=== PATIENT | female | born 1985 | race Caucasian/White ===

== ENCOUNTER 2017-10-24 06:47 | Day surgery (SDC) | payer OTHER ==
[~2017-10-24 06:47] MED LIST: Lidocaine 1%/Sod Bicarbonate in NS 8.4% 1 ML Syringe IDERM PRN; Sodium Chloride 0.9% 10 ML Syringe FLUSH PRN
[2017-10-24] MEDS ORDERED: Ketamine 500 mg/10 ML MDV ONE (07:02)
[2017-10-24] MEDS ORDERED: Lidocaine 1% 4 ML ONE (07:02)
[2017-10-24] MEDS ORDERED: Ondansetron 4 MG/2 ML SDV ONE (07:02)
[2017-10-24] MEDS ORDERED: Propofol 200 MG/20 ML SDV ONE ×6 (07:02→08:55)
[2017-10-24] MEDS ORDERED: Midazolam 1 MG/ML 2 ML SDV ONE (07:02)
[2017-10-24] MEDS ORDERED: Rocuronium 50 MG/5 ML Vial ONE (07:02)
[2017-10-24] MEDS ORDERED: Dexamethasone 4 MG/ML 5 ML MDV ONE (07:02)
[2017-10-24] MEDS ORDERED: fentaNYL 250 MCG/5 ML SDV ONE (07:02)
[2017-10-24] MEDS ORDERED: Bupivacaine 0.5% 30 ML SDV ONE (07:10)
[2017-10-24] MEDS ORDERED: Sodium Chloride 0.9% 50 ML SDV ONE (07:10)
[2017-10-24] MEDS ORDERED: Lidocaine 1% with EPINEPHrine 1:100,000 20 ML MDV ONE (07:10)
[2017-10-24] MEDS: Lactated Ringers 1,000 ML IV SCH ×2 (07:25→12:22)
--- NOTE | 2017-10-24 07:37 | PCM.PREANE ---
Preanesthetic Assessment - Procedure Proposed Procedure: LAVH with BS - Anesthesia/Transfusion/Family Hx Anesthesia History: Prior Anesthesia Reaction Type of Anesthesia Reaction: Excessive Nausea/Vomiting Family History of Anesthesia Reaction: No Transfusion History: No Prior Transfusion(s) Intubation History: Unknown - Review of Systems General: No Symptoms Pulmonary: No Symptoms Cardiovascular: No Symptoms Gastrointestinal: No Symptoms Neurological: No Symptoms Other: Reports: None - Physical Assessment NPO Status Date: 10/23/17 NPO Status Time: 23:30 Pulse: 89 O2 Sat by Pulse Oximetry: 100 Respiratory Rate: 16 Blood Pressure: 116/77 Temperature: 37.0 C Height: 1.57 m Weight: 61 kg ASA Class: 2 Mental Status: Alert & Oriented x3 Airway Class: Mallampati = 1 Dentition: Reports: Broken Tooth/Teeth (chipped left top 2nd tooth) Thyro-Mental Finger Breadths: 3 Mouth Opening Finger Breadths: 3 ROM/Head Extension: Full Lungs: Clear to Auscultation, Normal Respiratory Effort Cardiovascular: Regular Rate, Regular Rhythm - Lab Values: Laboratory Last Values WBC 6.48 K/mm3 (3.98-10.04) 10/22/17 12:27 RBC 4.70 M/mm3 (3.98-5.22) 10/22/17 12:27 Hgb 11.6 gm/L (11.2-15.7) 10/22/17 12:27 Hct 36.9 % (34.1-44.9) 10/22/17 12:27 MCV 78.5 fl (79.4-94.8) L 10/22/17 12:27 MCH 24.7 pg (25.6-32.2) L 10/22/17 12:27 MCHC 31.4 g/dl (32.2-35.5) L 10/22/17 12:27 RDW Std Deviation 53.0 fL (36.4-46.3) H 10/22/17 12:27 Plt Count 327 K/mm3 (182-369) 10/22/17 12:27 MPV 10.5 fl (9.4-12.3) 10/22/17 12:27 Neut % (Auto) 61.5 % (34.0-71.1) 10/22/17 12:27 Lymph % (Auto) 28.2 % (19.3-51.7) 10/22/17 12:27 [place] % (Auto) 7.6 % (4.7-12.5) 10/22/17 12:27 Eos % (Auto) 1.7 (0.7-5.8) 10/22/17 12: Baso % (Auto) 0.8 % (0.1-1.2) 10/22/17 12:27 Neut # (Auto) 3.99 K/mm3 (1.56-6.13) 10/22/17 12: Lymph # (Auto) 1.83 K/mm3 (1.18-3.74) 10/22/17 12:27 [place] # (Auto) 0.49 K/mm3 (0.24-0.36) H 10/22/17 12: Eos # (Auto) 0.11 K/mm3 (0.04-0.36) 10/22/17 12: Baso # (Auto) 0.05 K/mm3 (0.01-0.08) 10/22/17 12:27 Urine Color Yellow (Yellow) 10/22/17 12:27 Urine Appearance Clear (Clear) 10/22/17 12:27 Urine pH 7.0 (5.0-8.0) 10/22/17 12:27 Ur Specific [place] 1.015 (1.005-1.030) 10/22/17 12:27 Urine Protein Negative (Negative) 10/22/17 12:27 Urine Glucose (UA) Negative (Negative) 10/22/17 12:27 Urine Ketones Negative (Negative) 10/22/17 12:27 Urine Occult Blood Negative (Negative) 10/22/17 12:27 Urine Nitrite Negative (Negative) 10/22/17 12:27 Urine Bilirubin Negative (Negative) 10/22/17 12:27 Urine Urobilinogen 0.2 (0.2-1.0) 10/22/17 12:27 Ur Leukocyte Esterase Negative (Negative) 10/22/17 12:27 Urine HCG, Qual Negative (NEGATIVE) 10/22/17 12:27 Blood Type A POSITIVE 10/22/17 12:27 Gel Antibody Screen Negative 10/22/17 12:27 - Allergies Allergies/Adverse Reactions: Allergies Allergy/AdvReac Type Severity Reaction Status Date / Time morphine Allergy Itching Verified 10/23/17 11:50 - Blood Blood Available: No Product(s) Available: None - Anesthesia Plan Pre-Op Medication Ordered: None - Acknowledgements Anesthesia Type Planned: General Anesthesia (scopolamine patch, TIVA) Pt an Appropriate Candidate for the Planned Anesthesia: Yes Alternatives and Risks of Anesthesia Discussed w Pt/Guardian: Yes Pt/Guardian Understands and Agrees with Anesthesia Plan: Yes PreAnesthesia Questionnaire - Past Health History Medical/Surgical History: Denies Medical/Surgical History Cardiovascular History: Reports: None Respiratory History: Reports: None Gastrointestinal History: Reports: None PRINCIPAL DATA ARCHITECT History: Reports: , Other (See Below) Other OB/BYN History: menorrhagia, dysmenorrhea, bacterial vaginitis, discharge and odor, HPV Musculoskeletal History: Reports: None Neurological History: Reports: None Psychiatric History: Reports: None Endocrine/Metabolic History: Reports: None Hematologic History: Reports: None Immunologic History: Reports: None Oncologic (Cancer) History: Reports: None Dermatologic History: Reports: Other (See Below) Other Dermatologic History: right foot plant wart removal, left wrist cyst removal - Past Surgical History Head Surgeries/Procedures: Reports: None HEENT Surgical History: Reports: Oral Surgery Cardiovascular Surgical History: Reports: None Respiratory Surgical History: Reports: None GI Surgical History: Reports: None Female Surgical History: Reports: Section Endocrine Surgical History: Reports: None Neurological Surgical History: Reports: None Musculoskeletal Surgical History: Reports: None Oncologic Surgical History: Reports: None - SUBSTANCE USE Smoking Status *Q: Current Every Day Smoker Recreational Drug Use History: No - HOME MEDS Home Medications: Home Meds Ibuprofen 600 mg PO Q6HR PRN #60 tablet 12/09/13 [Rx] Ferrous Sulfate [Iron] 325 mg PO DAILY 10/23/17 [History] MV-Min/Vit C/Glut/Sarah Ac/HC124 [Airborne Tablet Chewable] 1 tab PO DAILY [History] Multivitamin [Daily Multiple Vitamin] 1 tab PO DAILY 10/23/17 [History] - CURRENT (IN HOUSE) MEDS Current Meds: Current Medications Lactated Ringer's (Ringers, Lactated) 1,000 mls @ 125 mls/hr IV ASDIRECTED GIGI Stop: 10/24/17 23:00 Lidocaine/Sodium Bicarbonate (Buffered Lidocaine 1% In Ns 8.4%) 0.25 ml IDERM ONETIME PRN PRN Reason: Prior to IV Start Stop: 10/24/17 18:00 Sodium Chloride (Saline Flush) 10 ml FLUSH ASDIRECTED PRN PRN Reason: Keep Vein Open Stop: 10/24/17 18:00 Discontinued Medications Bupivacaine HCl (Marcaine 0.5%) Confirm Administered Dose 30 ml .ROUTE .STK-MED ONE Stop: 10/24/17 07:11 Dexamethasone (Dexamethasone) Confirm Administered Dose 20 mg .ROUTE .STK-MED ONE Stop: 10/24/17 07:03 Fentanyl (Sublimaze) Confirm Administered Dose 250 mcg .ROUTE .STK-MED ONE Stop: 10/24/17 07:03 Lidocaine HCl (Xylocaine-Mpf 1%) Confirm Administered Dose 4 mls @ as directed .ROUTE .STK-MED ONE Stop: 10/24/17 07:03 Ketamine HCl (Ketalar) Confirm Administered Dose 500 mg .ROUTE .STK-MED ONE Stop: 10/24/17 07:03 Lidocaine/Epinephrine (Xylocaine 1% With Epinephrine 1:100,000) Confirm Administered Dose 20 ml .ROUTE .STK-MED ONE Stop: 10/24/17 07:11 Midazolam HCl (Versed 1 Mg/Ml) Confirm Administered Dose 2 mg .ROUTE .STK-MED ONE Stop: 10/24/17 07:03 Ondansetron HCl (Zofran) Confirm Administered Dose 4 mg .ROUTE .STK-MED ONE Stop: 10/24/17 07:03 Propofol (Diprivan 20 Ml) Confirm Administered Dose 200 mg .ROUTE .STK-MED ONE Stop: 10/24/17 07:03 Rocuronium [place] (Zemuron) Confirm Administered Dose 50 mg .ROUTE .STK-MED ONE Stop: 10/24/17 07:03 Sodium Chloride (Normal Saline) Confirm Administered Dose 50 ml .ROUTE .STK-MED ONE Stop: 10/24/17 07:11
[2017-10-24] MEDS ORDERED: Scopolamine 1.5 MG Transdermal Patch TRDERM ONE (07:40)
[2017-10-24] MEDS ORDERED: ceFAZolin 1 GM Vial ONE (07:46)
[2017-10-24] MEDS ORDERED: HYDROmorphone 0.5 MG/0.5 ML Syringe ONE ×2 (08:23)
[2017-10-24] MEDS ORDERED: Lactated Ringers 1,000 ML ONE (08:47)
[2017-10-24] MEDS ORDERED: Ketorolac 30 MG/ML SDV ONE (09:24)
[2017-10-24] MEDS ORDERED: diphenhydrAMINE 50 MG/ML SDV IVPUSH PRN (09:42)
[2017-10-24] MEDS ORDERED: HYDROmorphone 0.5 MG/0.5 ML Syringe IVPUSH ONE (09:42)
[2017-10-24] MEDS ORDERED: Meperidine PF 50 MG/ML Syringe IVPUSH PRN (09:42)
[2017-10-24] MEDS ORDERED: fentaNYL 100 MCG/2 ML SDV IVPUSH PRN (09:42)
[2017-10-24] MEDS ORDERED: Ondansetron 4 MG/2 ML SDV IVPUSH PRN ×2 (09:42→09:44)
--- NOTE | 2017-10-24 09:42 | PCM.POSTAN ---
POST ANESTHESIA ASSESSMENT - MENTAL STATUS Mental Status: Somnolent - VITAL SIGNS Pulse Rate: 61 SaO2: 97 Resp Rate: 8 Blood Pressure: 118/66 Temperature: 36.9 C - RESPIRATORY Respiratory Status: Respiratory Rate WNL, Airway Patent, O2 Saturation Stable, Supplemental Oxygen - CARDIOVASCULAR CV Status: Pulse Rate WNL, Blood Pressure Stable - GASTROINTESTINAL GI Status: No Symptoms - PAIN Pain Score: 0 - POST OP HYDRATION Hydration Status: Adequate & Stable
[2017-10-24] MEDS ORDERED: Acetaminophen/oxyCODONE 325-5 MG Tab PO PRN (09:44)
--- NOTE | 2017-10-24 09:51 | PCM.OPNOTE ---
- General Post-Op/Procedure Note Date of Surgery/Procedure: 10/24/17 Operative Procedure(s): Laparoscopically assisted vaginal hysterectomy with bilateral salpingectomy Findings: Patient numerous vesicles on the posterior aspect of the uterus. Uterus is mildly enlarged. Right and left ovary had functional appearing cyst present. There was scarring in the anterior cul-de-sac secondary to her previous sections. Posterior cul-de-sac was clear. Appendix was flaccid and noninflamed. Gallbladder was distended and was unremarkable. Liver edge was normal. Pre Op Diagnosis: 1. Dysmenorrhea. 2. Menorrhagia Post-Op Diagnosis: Same Anesthesia Technique: General ET Tube Other Anesthesia Type: Marcaine 0.5% local10 mL, lidocaine with epi 1/4 percent local-15 mL Primary Surgeon: Catracho Nina Secondary Surgeon: Stephen Allen Anesthesia Provider: Porter Yanez K 9 Police Officer: Eddie Centeno Reason K 9 Police Officer Was Necessary: Retraction, assistance, patient's safety, quality of Care Role of K 9 Police Officer: Retraction, assistance. Pathology: Uterus with bilateral fallopian tubes as one specimen Fluid Replacement, Intraop: 1,500 Output, Urine Amount: 100 EBL in mLs: 125 Drain/Tube Comments:: Indwelling bladder catheter during surgery only. Removed at the end of the case. Complications: None Condition: Good Free Text/Narrative:: Surgery duration: 63 minutes The patient was taken to the operating room placed in supine position on the operating table. She received 2 g of Ancef preoperatively for infection prophylaxis. She had signed consent previously. After adequate anesthesia patient was placed in a dorsal lithotomy position. It should be noted she had sequential compression stockings in place for DVT prophylaxis. A uterine manipulator was placed as was an latex free indwelling bladder catheter. This was done after adequate prepping and draping. The patient was placed in supine position and four laparoscopic port sites were developed. Marcaine 0.5% approximately 3-5 mL was injected at each site. Varies needle was placed and pneumoperitoneum was achieved with 3 L of CO2. Infraumbilical, suprapubic and 2 lateral port sites were developed. Under laparoscopic guidance the upper portion of the hysterectomy was performed. The right meso salpinx was taken down using the Enseal vessel closure system. This was followed by progression to the ovarian ligament and the round ligament development. The round ligament was taken down to the broad ligament. The broad ligament was taken down to the uterine vasculature which was crossclamped. Bladder flap was then developed using the Enseal vessel closure system. Same procedure was done on the patient' s left side. Ovaries were conserved per patient desire. Vaginal approach was then undertaken. The patient was placed in the dorsal lithotomy position and a weighted speculum was placed in the vagina. The cervix was injected with lidocaine quarter percent with epinephrine 20 mL total. A full circumference incision was made through the epithelium around the cervix. Posterior cul-de-sac was entered without problems. The left uterosacral ligament and then the right uterosacral were taken down using the Enseal vessel closure system. The cardinal ligament and what remained of the uterine vascular vessels and cervical branches of the vessels were managed with the Enseal vessel closure system on each side. Anterior cul-de-sac was then entered and the remaining portion of broad ligament on the right side and a small portion of broad ligament remaining on the left side were then developed in the usual fashion. Uterus was then removed. At this point the uterus was completely removed and sent as specimen. The vaginal cuff was then run with a locked running suture of 0 Monocryl from the 2 o'clock position to the 10 o'clock position. The vagina was closed with a running locked suture of 0 Monocryl. Hemostasis was confirmed this time and no bleeding was noted. Laparoscopy was then performed to ensure hemostasis. Pneumoperitoneum was reestablished and the laparoscope was placed. The pelvis was found to be hemostatically intact. There was no evidence of any bowel adhesion to the vaginal cuff area noted. The sleeves were removed under direct visualization and the upper sleeve was removed after reversal of the pneumoperitoneum. Each of these sites were closed with a single interrupted suture of 3-0 Monocryl. They were further approximated with Dermabond skin glue. At this point the patient was awakened from general endotracheal anesthesia. The Gould catheter had been removed by this time. She is discharged from the operating room in good condition.
--- NOTE | 2017-10-24 12:18 | PCM48HPAN ---
Post Anesthesia Note - EVALUATION WITHIN 48HRS OF ANESTHETIC Vital Signs in Normal Range: Yes Patient Participated in Evaluation: Yes Respiratory Function Stable: Yes Airway Patent: Yes Cardiovascular Function Stable: Yes Hydration Status Stable: Yes Pain Control Satisfactory: Yes Nausea and Vomiting Control Satisfactory: Yes Mental Status Recovered: Yes - COMMENTS/OBSERVATIONS Free Text/Narrative:: Patient states she has some pruritus and some cramping but both are tolerable. No anesthetic complications
== END 2017-10-24 13:25 | disposition home or self-care (01) ==
LOC: JD.SDS 06:47
PROVIDERS: ATTEND Obstetrics & Gynecology
DX: N80.0 Endometriosis of uterus (principal); N73.6 Female pelvic peritoneal adhesions (postinfective); F17.200 Nicotine dependence, unspecified, uncomplicated; Z79.899 Other long term (current) drug therapy; Z88.5 Allergy status to narcotic agent
CPT/HCPCS: 36415; 58552; 81003; 81025; 85025; 86850; 86900; 86901; A9270; J0690; J1100; J1170; J1885; J2001; J2250; J2405; J3010; J7120; 00944; J2704

== ENCOUNTER 2022-04-19 19:51 | Emergency (ER) | payer OTHER ==
[2022-04-19] MEDS ORDERED: Ketorolac 60 MG/2 ML SDV IM ONE (21:11)
== END 2022-04-19 21:40 | disposition home or self-care (01) ==
LOC: JD.ED 19:51
DX: S93.402A Sprain of unspecified ligament of left ankle, initial encounter (principal); Z88.5 Allergy status to narcotic agent; X50.1XXA Overexertion from prolonged static or awkward postures, initial encounter
CPT/HCPCS: 73610; 96372; 99283; J1885